=== PATIENT | female | born 1975 | race American Indian/Alaskan Native ===

== ENCOUNTER 2017-01-02 14:32 | Emergency (ER) | payer MEDICAID ==
[2017-01-02] MEDS ORDERED: ZOFRAN IV ONE ×2 (15:13→21:17)
[2017-01-02] MEDS ORDERED: MORPHINE IV ONE (15:13)
[2017-01-02] MEDS ORDERED: NACL 0.9% 1000 ML 1,000 ML IV ONE (15:13)
--- NOTE | 2017-01-02 15:19 | Emergency Department Report ---
Chief Complaint: Abdominal Pain Stated Complaint: NAUSEA/VOMITING Time Seen by Provider: 01/02/17 15:12 - HPI History of Present Illness: 31-year-old female presents to the emergency department via EMS complaining of nausea and vomiting. Patient underwent abdominoplasty and liposuction yesterday at a plastic surgery Center in [place]. She states that she took her Percocet last night without eating and began vomiting. Patient is reporting some abdominal pain but this is unchanged from before the vomiting started. Patient is concerned she may be dehydrated. There are no other complaints. - Exam Vital Signs: Vital Signs 01/02/17 14:51 Temperature 98.9 F Pulse Rate 89 Respiratory 20 Rate Blood Pressure 149/98 O2 Sat by Pulse 100 Oximetry Physical Exam: General: No acute distress CV: RRR Lungs: CTA B Abd: mild, diffuse tenderness to palpation, appropriate considering recent procedure. Incision site intact with no draining. MSE screening note: Focused history and physical exam performed. Due to findings the following was ordered: CBC, BMP, UA, IV fluids, IV morphine , IV Zofran ED Disposition for MSE Condition: Stable Instructions: Abdominal Pain (ED)
[2017-01-02 15:34] LABS: Basophils % (Auto) 0.2 % (0.0-1.8); Hematocrit 36.6 % (30.3-42.9); Hemoglobin 11.6 gm/dl (10.1-14.3); Mean Corpuscular HGB Conc 32 % (30-34); Mean Corpuscular Volume 78 fl (79-97); Platelet Count 329 K/mm3 (140-440); Red Blood Count 4.71 M/mm3 (3.65-5.03); Red Cell Distribution Width 17.3 % (13.2-15.2); White Blood Count 11.5 K/mm3 (4.5-11.0)
[2017-01-02 15:42] LABS: Mean Corpuscular Hemoglobin 25 pg (28-32)
[2017-01-02 15:54] LABS: Anion Gap 18 mmol/L; BUN/Creatinine Ratio 11.42; Blood Urea Nitrogen 8 mg/dL (7-17); Calcium 8.7 mg/dL (8.4-10.2); Carbon Dioxide 22 mmol/L (22-30); Chloride 103.8 mmol/L (98-107); Glucose 157 mg/dL (65-100); Potassium 3.9 mmol/L (3.6-5.0); Sodium 140 mmol/L (137-145)
[2017-01-02 16:55] LABS: Bilirubin,Urine NEG (Negative); Blood,Urine NEG (Negative); Ketones,Urine NEG (Negative); Leukocyte Esterase,Urine NEG (Negative); Mucus,Urine FEW /HPF; Nitrite,Urine NEG (Negative); Protein,Urine <15 mg/dL mg/dL (Negative); Urobilinogen,Urine < 2.0 mg/dL (<2.0)
[2017-01-02 16:58] LABS: RBC,Urine < 1.0 /HPF (0.0-6.0)
[2017-01-02 18:12] VITALS: BP 154/91
[2017-01-02] MEDS ORDERED: REGLAN IV ONE (18:22)
--- NOTE | 2017-01-02 18:56 | Emergency Department Report ---
HPI - General Chief Complaint: Abdominal Pain Time Seen by Provider: 01/02/17 15:12 - HPI HPI: This is a 41-year-old Afro-[place] female presents to the emergency department from home by EMS with complaint of nausea and vomiting and some abdominal discomfort. The patient had a tummy tuck done yesterday in [facility]. However the patient lives closer to [facility]. Patient has been taking Percocet for her discomfort and says that she took the medication this morning without eating any food and since that time has been having excessive nausea and vomiting. The abdominal pain is lower abdomen but mild in nature. She denies any fever, diarrhea, back pain, vaginal bleeding or discharge. She received about 200 mL of IV fluid by EMS. The patient took 2 Zofran tablets prior to arrival but is unsure whether they were 4 mg her a milligram pills. She has a past medical history of hypertension and colitis. ED Past Medical Hx - Past Medical History Hx Hypertension: Yes Additional medical history: Colitis - Surgical History Past Surgical History?: Yes Additional Surgical History: tummy tuck - Social History Smoking Status: Never Smoker Substance Use Type: None - Medications Home Medications: Home Medications Medication Instructions Recorded Confirmed Last Taken Type Promethazine [Phenergan] 25 mg UT Q8H PRN #10 supp.rect 01/02/17 Unknown Rx ED Review of Systems ROS: Stated complaint: NAUSEA/VOMITING Other details as noted in HPI Comment: All other systems reviewed and negative Constitutional: denies: chills, fever Eyes: denies: eye pain, eye discharge, vision change ENT: denies: ear pain, throat pain Respiratory: denies: cough, shortness of breath, wheezing Cardiovascular: denies: chest pain, palpitations Gastrointestinal: abdominal pain, nausea, vomiting Genitourinary: denies: urgency, dysuria, discharge Musculoskeletal: denies: back pain, joint swelling, arthralgia Skin: denies: rash, lesions Neurological: denies: headache, weakness, paresthesias Physical Exam - Physical Exam Vital Signs: Vital Signs 01/02/17 01/02/17 01/02/17 14:51 16:34 18:00 Temperature 98.9 F 99.6 F Pulse Rate 89 80 89 Respiratory 20 16 18 Rate Blood Pressure 149/98 Blood Pressure 123/90 154/91 [Left] O2 Sat by Pulse 100 97 97 Oximetry Physical Exam: GENERAL: The patient is well-developed well-nourished. HEENT: Normocephalic. Atraumatic. Extraocular motions are intact. Patient has moist mucous membranes. Pupils equal reactive to light bilaterally. NECK: Supple. Trachea is midline. CHEST/LUNGS: Clear to auscultation. There is no respiratory distress noted. HEART/CARDIOVASCULAR: Regular. There is no tachycardia. There is no gallop rub or murmur. ABDOMEN: Abdomen is soft. Patient has some tenderness to palpation to the mid to lower abdomen where she had a recent tummy tuck. There is a drain in place with some serosanguineous drainage. No guarding rebound tenderness. It is not a toxic or rigid abdomen. Patient has normal bowel sounds. There is no abdominal distention. There is some dried blood seen around the incision sites. SKIN: Skin is warm and dry. NEURO: The patient is awake, alert, and oriented. The patient is cooperative. The patient has no focal neurologic deficits. The patient has normal speech. MUSCULOSKELETAL: There is no tenderness or deformity. There is no limitation range of motion. There is no evidence of acute injury. ED Course Vital Signs 01/02/17 01/02/17 01/02/17 14:51 16:34 18:00 Temperature 98.9 F 99.6 F Pulse Rate 89 80 89 Respiratory 20 16 18 Rate Blood Pressure 149/98 Blood Pressure 123/90 154/91 [Left] O2 Sat by Pulse 100 97 97 Oximetry - Consultations Consultation #1: I spoke with the patient's general surgeon/plastic surgeon, Dr. Peña, who is aware of the patient's CT findings of a 7 cm fluid collection in the abdominal wall. He is not concerned about this fluid collection. He says that the drain sometimes takes a few days for it to work. He feels that the patient is safe for discharge home and recommends following up with him in the next 1-2 days. 01/02/17 22:00 ED Medical Decision Making - Lab Data Result diagrams: 01/02/17 15:19 01/02/17 15:19 - Radiology Data Radiology results: report reviewed, image reviewed interpreted by me: Abdominal x-ray shows some nonspecific but dilated bowel gas. Radiology has concern for ileus. CT of the abdomen and pelvis with IV contrast shows no bowel obstruction or other acute intraperitoneal process. Postsurgical edema, stranding of subcutaneous emphysema throughout the anterior abdominal wall status post abdominoplasty. There is an oblong irregular area of fluid in the superior to the level of the surgical drain in the left para midline upper abdominal wall measuring 7.3 cm. - Medical Decision Making 41-year-old female 1 day status post abdominoplasty presents with nausea and vomiting and some mild abdominal discomfort. Patient believes, and I believe, that the patient took her Percocet on an empty stomach and this is the cause of her nausea and vomiting. Patient was given some IV fluid resuscitation and antinausea medication here. Patient's labs are mostly unremarkable. Abdominal x-ray was done to make sure that there was no free air and there was not but there is some dilated bowel gas that was read by radiology as concern for possible ileus. For this reason a CT of the abdomen and pelvis was done. CT did not show any bowel obstruction or acute intraperitoneal process but there is a 7 cm fluid collection in the upper abdominal wall. I spoke with the plastic surgeon and he is not concerned and would like the patient discharged home for follow-up with him in 1-2 days. Patient's vital signs stable throughout her ED course. She has been reevaluated multiple times and says she is feeling much better. She will go home with some antinausea medication and encouragement to follow-up with her surgeon. She'll return to the ER if any worsening of her symptoms or any acute distress. - Differential Diagnosis bowel obstruction, perforation, abscess, postop pain Critical Care Time: No Critical care attestation.: If time is entered above; I have spent that time in minutes in the direct care of this critically ill patient, excluding procedure time. ED Disposition Clinical Impression: Postoperative abdominal pain Hypertension Qualifiers: Hypertension type: essential hypertension Qualified Code(s): I10 - Essential ( primary) hypertension Nausea and vomiting Qualifiers: Vomiting type: unspecified Vomiting Intractability: non-intractable Qualified Code(s): R11.2 - Nausea with vomiting, unspecified Disposition: DISCHARGED TO HOME OR SELFCARE Is pt being admited?: No Condition: Stable Instructions: Abdominal Pain (ED), Hypertension (ED), Acute Nausea and Vomiting (ED) Additional Instructions: Please follow-up with your plastic surgeon in the next 1-2 days. Return to the emergency department with any worsening of your symptoms, development of fever, intractable vomiting, or any acute distress. Prescriptions: Promethazine [Phenergan] 25 mg UT Q8H PRN #10 supp.rect PRN Reason: Nausea Referrals: PRIMARY CARE, [Primary Care Provider] - [facility] Time of Disposition: 22:05
--- NOTE | 2017-01-02 18:59 | XRay Report ---
FINAL REPORT EXAM: XR ABDOMEN 2V HISTORY: abd pain TECHNIQUE: upright and supine portable views of the abdomen and pelvis PRIORS: None. FINDINGS: No pneumoperitoneum. Large stool burden. Prominent air-filled hepatic flexure. A couple of prominent upper abdominal small bowel loops are also present. Surgical drain projects over the pelvis. No evident fracture. IMPRESSION: Nonspecific bowel gas pattern, with ileus favored over complete small-bowel obstruction on the basis of air within the colon. If there is concern for small bowel obstruction, CT is suggested for more sensitive and specific evaluation.
[2017-01-02] MEDS ORDERED: NACL ONE (19:37)
--- NOTE | 2017-01-02 21:27 | Cat Scan Report ---
FINAL REPORT EXAM: CT ABDOMEN PELVIS W CON HISTORY: abd pain TECHNIQUE: CT images are acquired through the Abdomen and Pelvis in venous and delayed phases following intravenous administration of 100 cc Omnipaque 300 contrast. Transaxial, coronal and sagittal reformations are provided. PRIORS: Radiographs of the same date FINDINGS: Partially visualized intrathoracic contents are remarkable for bibasilar atelectasis/scarring. The liver, gallbladder, pancreas, spleen, and adrenal glands are normal. An 8 millimeter hypo enhancing lesion in the interpolar right kidney is too small to characterize but is probably a benign cyst. Bilateral nonobstructive nephrolithiasis measures up to 5 millimeters in greatest dimension in each kidney. Extrarenal pelvis is noted bilaterally. No hydroureteronephrosis. No stones in the urinary bladder. Multiple pelvic phleboliths. The uterus is anteverted. No significant free fluid in the pelvis. Small hiatal hernia. Small and large bowel appear non obstructive. Appendix is normal. No free air, free fluid, or lymphadenopathy identified. Aorta is normal in course and caliber. Diffusely scattered subcutaneous emphysema and anterior abdominal wall stranding and edema status post abdominoplasty. A superficial surgical drain is in place. A more focal area of fluid is present at the level of the left inferior costochondral junction on axial series 3, image 55 measuring 73 x 21 x 66 millimeters. Question mesh placement at the linea alba with possible small rectus diastasis/fat containing umbilical hernia. No acute or aggressive appearing skeletal findings. IMPRESSION: No no bowel obstruction or other acute intraperitoneal process identified. Postsurgical edema, stranding and subcutaneous emphysema throughout the anterior abdominal wall status post abdominoplasty. [place], irregular area of fluid is present well superior to the level of surgical drain in the left para midline upper abdominal wall measuring up to 7.3 cm. Consider targeted sonographic follow-up evaluate for further organization/abscess formation if patient develops infectious symptoms. Dr. Cee discussed findings with Dr. Becker at [employer] following the examination.
[2017-01-02] MEDS ORDERED: REGLAN ONE (21:47)
== END 2017-01-02 22:24 | disposition home or self-care (01) ==
LOC: ED 14:32
DX: G89.18 Other acute postprocedural pain (principal); R10.9 Unspecified abdominal pain; R11.2 Nausea with vomiting, unspecified; I10 Essential (primary) hypertension
CPT/HCPCS: 36415; 74020; 74177; 80048; 81001; 83735; 84703; 85025; 96361; 96374; 96375; 99285; J2270; J2405; J2765; J7030; Q9967